=== PATIENT | male | born 1960 | race Caucasian/White ===

== ENCOUNTER 2023-08-08 08:54 | Emergency (ER) | payer SELFPAY ==
[2023-08-08] VITALS (10 sets, daily range): BP systolic 112–142; BP diastolic 66–77; PULSE 59–77; RESP 12–21; TEMP 36.8; O2SAT 96–99; BMI 25.8
--- NOTE | 2023-08-08 09:07 | ED.GENADULT ---
HPI - General Adult General Chief complaint: Recheck/Abnormal Lab/Rx Stated complaint: hernia surgery yesterday popping through mesh Time Seen by Provider: 08/08/23 09:04 Source: patient Mode of arrival: Ambulatory Limitations: no limitations History of Present Illness HPI narrative: Patient is a 62-year-old male. Yesterday underwent an elective outpatient left inguinal hernia repair. Was discharged home afterwards. Yesterday he was getting up from sitting on a recliner when he noticed any increasing pain and bulging to the left inguinal region. That has continued throughout today and has worsened. He has not having any problems urinating. He did have a bowel movement this morning. No vomiting. No fevers. Related Data Allergies Allergy/AdvReac Type Severity Reaction Status Date / Time grape Allergy Unknown Verified 08/08/23 09:21 Penicillins Allergy Rash Verified 08/08/23 09:21 nuts Allergy Unknown Uncoded 08/08/23 09:21 Review of Systems Gastrointestinal Gastrointestinal: Reports system reviewed and no additional complaints, except as documented Genitourinary Genitourinary: Reports system reviewed and no additional complaints, except as documented Integumentary/Breasts Skin/Breast: Reports system reviewed and no additional complaints, except as documented Neurologic Neurologic: Reports system reviewed and no additional complaints, except as documented Patient History Social History Smoking Status: Never smoker Exam Initial Vital Signs Initial Vital Signs: Vital Signs Temperature 98.3 F 08/08/23 09:11 Pulse Rate 77 08/08/23 09:11 Respiratory Rate 18 08/08/23 09:11 Blood Pressure 138/77 08/08/23 09:11 Pulse Oximetry 99 08/08/23 09:11 Oxygen Delivery Method Room Air 08/08/23 09:11 Const General: cooperative and No ill appearing [facility] Head: normal to inspection and normocephalic GI Other: Surgical bandage in place left inguinal region with surrounding swelling. Other: Mild swelling to the left hemiscrotum. Penis unremarkable. Skin Other: Bandage in place to left inguinal region. Neuro General: patient alert and patient awake Course Orders Ordered: ED Orders 08/08/23 09:16 CT abdomen pelvis w con Stat 08/08/23 09:20 Complete Blood Count AUTO DIFF Stat Comprehensive Metabolic Panel Stat Lipase Stat Discontinued Medications Morphine Sulfate (Morphine 4 Mg/Ml Inj) 4 mg IV NOW ONE Stop: 08/08/23 10:28 Last Admin: 08/08/23 10:33 Dose: 4 mg Documented By: CECILE Vital Signs Vital signs: Vital Signs - 8 hr 08/08/23 09:11 Temperature 98.3 F Pulse Rate 77 Respiratory Rate 18 Blood Pressure 138/77 Pulse Oximetry 99 Oxygen Delivery Method Room Air Medical Decision Making Lab Data Lab results reviewed: Yes I reviewed the patient's lab results. 08/08/23 09:20 08/08/23 09:20 Labs: Lab Results 08/08/23 Range/Units 09:20 WBC 6.7 (4.5-11.0) X10^3/uL RBC 4.90 (4.5-5.9) X10^6/uL Hgb 14.3 (13.5-17.5) g/dL Hct 42.4 (41-53) % MCV 86.4 (80-100) fL MCH 29.2 (26-34) PG MCHC 33.9 (30-36) % RDW 13.4 (11.6-14.8) % Plt Count 105 L (150-400) X10^3/uL Neut % (Auto) 76.8 H (50-75) % Lymph % (Auto) 12.3 L (25-40) % [place] % (Auto) 7.7 (3-14) % Eos % (Auto) 3.0 (2-4) % Baso % (Auto) 0.2 (0-2) % Neut # (Auto) 5100 (1085-2521) /uL Lymph # (Auto) 800 L (9561-9968) /uL [place] # (Auto) 500 (0-900) /uL Eos # (Auto) 200 (0-450) /uL Baso # (Auto) 0 (0-100) /uL Sodium 141 (137-145) mmol/L Potassium 3.8 (3.4-5.1) mmol/L Chloride 107 (98-107) mmol/L Carbon Dioxide 31 (22-32) mmol/L BUN 5 L (9-20) mg/dL Creatinine 0.77 (0.66-1.25) mg/dL Estimated GFR > 60 (>60) mL/min BUN/Creatinine Ratio 6.5 (6-22) Glucose 100 (80-110) mg/dL Calcium 8.7 (8.4-10.2) mg/dL Total Bilirubin 1.3 (0.2-1.3) mg/dL AST 26 (17-59) IU/L ALT 18 (<50) IU/L Alkaline Phosphatase 65 (38-126) U/L Total Protein 7.3 (6.3-8.2) g/dL Albumin 3.9 (3.5-5.0) g/dL Globulin 3.4 (1.7-4.1) g/dL Albumin/Globulin Ratio 1.1 (1.0-2.8) Lipase 32 (23-300) U/L Imaging Data CT scan - abdomen/pelvis: Radiologist's Impression: PROCEDURE:? CT ABDOMEN PELVIS W CON ? INDICATIONS:? L inguinal swelling after hernia repair yesterday ? TECHNIQUE:?? After the administration of intravenous contrast, axial sections acquired from the lung? bases to the pubic symphysis.? Coronal and sagittal reformats were performed.? For? radiation dose reduction, the following was used:? automated exposure control, adjustment? of mA and/or kV according to patient size.?? ? COMPARISON:? None. ? FINDINGS:?? Image quality:? Diagnostic.?? ? Lower Chest: No significant findings. ? ABDOMEN: Liver: No solid mass.? Punctate right hepatic lobe calcification. Gallbladder:? Cholelithiasis without CT evidence of acute cholecystitis.?? Biliary ducts:? No biliary dilation.? Pancreas:? No ductal dilation.? Spleen:? Size is within normal limits.? Adrenal Glands:? No adrenal nodules.? Kidneys and Ureters:? No hydronephrosis. No solid mass. No complex renal cystic lesion? which requires follow up. ? Stomach and Bowel:? Bowel wall thickening of the descending and sigmoid colon.?? Anastomotic sutures are noted within the colon. Peritoneum:? Mild inflammatory changes within the left pelvis with trace fluid and fat? stranding.? No extraluminal gas. ? Ventral Wall:? ?Small ventral hernias containing fat. Abdominal Nodes:? No retroperitoneal or mesenteric adenopathy by size criteria.? Vessels:? Aorta and inferior vena cava are normal in size.? ? PELVIS: Pelvic Organs:? Unremarkable.? Bladder:? Urinary bladder wall appears thickened, may be secondary to underdistention. Pelvic Nodes: No enlarged lymph nodes.? Miscellaneous:? Postsurgical changes in the left inguinal region with significant? subcutaneous stranding and edema.? Subcutaneous gas is present.? No organized fluid? collections. ? Bones:? No aggressive osseous abnormality.? ? Mild degenerative changes of the spine. ? IMPRESSION:?? ? 1. Inflammatory changes within left inguinal region with subcutaneous stranding, edema? and subcutaneous emphysema.? Prominence of the left inguinal canal.? No organized fluid? collections.? Infection is not excluded. 2. Wall thickening of the descending and sigmoid colon, may be reactive from adjacent? inflammatory changes in the left pelvis, colitis is also in the differential. 3. Cholelithiasis without CT evidence of acute cholecystitis. MDM Narrative Medical decision making narrative: CT scan today shows no reoccurrence of the hernia. There was no signs of wound dehiscence. No infection. I did discuss the case with Dr. Dorsey who was on-call for General surgery it would be [facility] who was also the 1 who performed the patient's surgery. Was no indication for transfer. No indication for emergent surgical evaluation. Discusses with the patient. Discussed taking it easy and using ice and supporting the area. Recommended he continue to follow all of the postoperative instructions. They were given return precautions. They expressed understanding and agreement. Discharge Plan Departure Patient Disposition: Home Clinical Impression: Post-operative complication Activity Restrictions/Additional Instructions: There is no indication on the CT scan that the hernia has reoccurred. The swelling that you were seeing as expected. Follow all of the postoperative instructions given to you by the general surgeon. Keep all of your scheduled follow-up appointments. Return to the emergency department for new symptoms. Stand Alone Forms: Patient Portal/API
--- NOTE | 2023-08-08 09:16 | DI.CT.S_ITS ---
PROCEDURE: CT ABDOMEN PELVIS W CON INDICATIONS: L inguinal swelling after hernia repair yesterday TECHNIQUE: After the administration of intravenous contrast, axial sections acquired from the lung bases to the pubic symphysis. Coronal and sagittal reformats were performed. For radiation dose reduction, the following was used: automated exposure control, adjustment of mA and/or kV according to patient size. COMPARISON: None. FINDINGS: Image quality: Diagnostic. Lower Chest: No significant findings. ABDOMEN: Liver: No solid mass. Punctate right hepatic lobe calcification. Gallbladder: Cholelithiasis without CT evidence of acute cholecystitis. Biliary ducts: No biliary dilation. Pancreas: No ductal dilation. Spleen: Size is within normal limits. Adrenal Glands: No adrenal nodules. Kidneys and Ureters: No hydronephrosis. No solid mass. No complex renal cystic lesion which requires follow up. Stomach and Bowel: Bowel wall thickening of the descending and sigmoid colon. Anastomotic sutures are noted within the colon. Peritoneum: Mild inflammatory changes within the left pelvis with trace fluid and fat stranding. No extraluminal gas. Ventral Wall: Small ventral hernias containing fat. Abdominal Nodes: No retroperitoneal or mesenteric adenopathy by size criteria. Vessels: Aorta and inferior vena cava are normal in size. PELVIS: Pelvic Organs: Unremarkable. Bladder: Urinary bladder wall appears thickened, may be secondary to underdistention. Pelvic Nodes: No enlarged lymph nodes. Miscellaneous: Postsurgical changes in the left inguinal region with significant subcutaneous stranding and edema. Subcutaneous gas is present. No organized fluid collections. Bones: No aggressive osseous abnormality. Mild degenerative changes of the spine. IMPRESSION: 1. Inflammatory changes within left inguinal region with subcutaneous stranding, edema and subcutaneous emphysema. Prominence of the left inguinal canal. No organized fluid collections. Infection is not excluded. 2. Wall thickening of the descending and sigmoid colon, may be reactive from adjacent inflammatory changes in the left pelvis, colitis is also in the differential. 3. Cholelithiasis without CT evidence of acute cholecystitis. Dictated by: Ruiz Martin M.D. on 08/08/2023 at 10:35 Approved by: Ruiz Martin M.D. on 08/08/2023 at 10:39
[2023-08-08 09:33] LABS: Add Manual Diff / Slide Review NO; Basophils Absolute Auto 0 /uL (0-100); Basophils Percent Auto 0.2 % (0-2); Eosinophils Absolute Auto 200 /uL (0-450); Hematocrit 42.4 % (41-53); Hemoglobin 14.3 g/dL (13.5-17.5); Lymphocytes Absolute Auto 800 /uL (1100-4500); Lymphocytes Percent Auto 12.3 % (25-40); Mean Corpuscular HGB Conc 33.9 % (30-36); Mean Corpuscular Hemoglobin 29.2 PG (26-34); Mean Corpuscular Volume 86.4 fL (80-100); Monocytes Absolute Auto 500 /uL (0-900); Monocytes Percent Auto 7.7 % (3-14); Neutrophils Absolute Auto 5100 /uL (1500-7000); Neutrophils Percent Auto 76.8 % (50-75); Platelet Count 105 X10^3/uL (150-400); Red Cell Distribution Width 13.4 % (11.6-14.8); White Blood Cell Count 6.7 X10^3/uL (4.5-11.0)
[2023-08-08 09:48] LABS: Alanine Aminotransferase 18 IU/L (<50); Albumin 3.9 g/dL (3.5-5.0); Albumin Globulin Ratio 1.1 (1.0-2.8); Alkaline Phosphatase 65 U/L (38-126); Aspartate Aminotransferase 26 IU/L (17-59); BUN Creatinine Ratio 6.5 (6-22); Bilirubin Total 1.3 mg/dL (0.2-1.3); Blood Urea Nitrogen 5 mg/dL (9-20); Calcium 8.7 mg/dL (8.4-10.2); Carbon Dioxide 31 mmol/L (22-32); Chloride 107 mmol/L (98-107); Estimated Glomerular Filt Rate > 60 mL/min (>60); Globulin 3.4 g/dL (1.7-4.1); Glucose 100 mg/dL (80-110); HEMOLYSIS < 15 (0-50); Lipase 32 U/L (23-300); Potassium 3.8 mmol/L (3.4-5.1); Sodium 141 mmol/L (137-145); Total Protein 7.3 g/dL (6.3-8.2)
[2023-08-08] MEDS: MORPHINE 4 MG/ML INJ IV (10:33)
== END 2023-08-08 12:57 | disposition home or self-care (01) ==
PROVIDERS: Emergency Provider Emergency Medicine
DX: Z98.890 Other specified postprocedural states (principal)
CPT/HCPCS: 36415; 74177; 80053; 83690; 85025; 96374; 99284; J2270; Q9967